=== PATIENT | male | born 1965 | race Caucasian/White ===

== ENCOUNTER 2016-11-09 23:33 | Emergency (ER) | payer OTHER ==
[2016-11-09 23:58] VITALS: BP 160/101
[2016-11-10] MEDS ORDERED: PROVENTIL IH ONE (01:34)
--- NOTE | 2016-11-10 02:29 | Emergency Department Report ---
ED Asthma HPI - General Chief Complaint: Adult Asthma Stated Complaint: BOLA Time Seen by Provider: 11/10/16 01:34 Source: patient Mode of arrival: Ambulatory Limitations: No Limitations - History of Present Illness Initial Comments: 51-year-old male comes in for asthma exacerbation. Patient reports that he has been wheezing. Not coughing much. Denies any fever no chills. He does report he was using a an inhaler but it has and has run out. - Related Data Previous Rx's Medication Instructions Recorded Last Taken Type ALBUTEROL Inhaler [ProAir HFA 2 puff IH QID PRN #1 inhalation 11/10/16 Unknown Rx Inhaler] Allergies Allergy/AdvReac Type Severity Reaction Status Date / Time No Known Allergies Allergy Verified 04/11/15 10:14 ED Review of Systems ROS: Stated complaint: BOLA Other details as noted in HPI Constitutional: denies: chills, fever, malaise ENT: denies: ear pain, throat pain Respiratory: wheezing. denies: cough Gastrointestinal: denies: abdominal pain, nausea, vomiting ED Past Medical Hx - Past Medical History Previous Medical History?: Yes Additional medical history: Hypothyroidism - Surgical History Past Surgical History?: Yes Additional Surgical History: THYROIDECTOMY - Social History Smoking Status: Never Smoker Substance Use Type: None - Medications Home Medications: Home Medications Medication Instructions Recorded Confirmed Last Taken Type ALBUTEROL Inhaler [ProAir HFA 2 puff IH QID PRN #1 inhalation 11/10/16 Unknown Rx Inhaler] ED Physical Exam - General Limitations: No Limitations General appearance: alert, in no apparent distress - Head Head exam: Present: atraumatic, normocephalic - Eye Eye exam: Present: normal appearance - ENT ENT exam: Present: normal exam, mucous membranes moist, TM's normal bilaterally - Neck Neck exam: Present: normal inspection. Absent: tenderness, full ROM, lymphadenopathy - Respiratory Respiratory exam: Present: wheezes (inspiratory wheeze) - Cardiovascular Cardiovascular Exam: Present: regular rate, normal rhythm, normal heart sounds ED Course Vital Signs 11/09/16 23:54 Temperature 98.1 F Pulse Rate 66 Respiratory 22 Rate Blood Pressure 160/101 O2 Sat by Pulse 97 Oximetry - Reevaluation(s) Reevaluation #1: 11/10/16 02:36 Patient post nebulizer treatment. Patient lungs are clear bilateral. Patient reports he feels much better. ED Medical Decision Making - Medical Decision Making Patient has been evaluated this provider in fast track. Ordered a nebulizer treatment of albuterol. We will discharge patient on albuterol inhaler. To follow-up with his primary care provider. Last understanding. Critical care attestation.: If time is entered above; I have spent that time in minutes in the direct care of this critically ill patient, excluding procedure time. ED Disposition Clinical Impression: Wheezing, Asthma Disposition: DISCHARGED TO HOME OR SELFCARE Is pt being admited?: No Does the pt Need Aspirin: No Condition: Stable Instructions: Reactive Airways Disease (ED), Asthma (ED) Additional Instructions: Use inhaler as prescribed. Follow up to primary care provider in 3-5 days. Prescriptions: ALBUTEROL Inhaler [ProAir HFA Inhaler] 2 puff IH QID PRN #1 inhalation PRN Reason: Shortness Of Breath Referrals: PRIMARY CARE, [Primary Care Provider] - 3-5 Days [facility] [Provider Group] - 3-5 Days Forms: Accompanied Note, Work/School Release Form(ED)
== END 2016-11-10 02:41 | disposition home or self-care (01) ==
LOC: ED 23:33
DX: J45.901 Unspecified asthma with (acute) exacerbation (principal); E89.0 Postprocedural hypothyroidism
CPT/HCPCS: 94640

== ENCOUNTER 2022-03-31 08:49 | Emergency (ER) | payer OTHER ==
[2022-03-31 08:59] VITALS: BP 127/79
--- NOTE | 2022-03-31 09:29 | XRay Report ---
XR chest routine 2V INDICATION / CLINICAL INFORMATION: SOB COMPARISON: None available. FINDINGS: SUPPORT DEVICES: None. HEART / MEDIASTINUM: No significant abnormality. LUNGS / PLEURA: Lungs are clear. Costophrenic sulci are sharp. No pneumothorax. ADDITIONAL FINDINGS: No significant additional findings. IMPRESSION: 1. No acute findings. Signer Name: Tom Celeste MD Signed: 03/31/2022 9:25 AM Workstation Name: [id number]
[2022-03-31] MEDS ORDERED: IPRATROPIUM 0.02% NEBU 2.5 ML IH ONE (11:13)
[2022-03-31] MEDS ORDERED: methylPREDNISolone Sod Succinate 125 MG/2 ML INJ IM ONE (11:13)
[2022-03-31] MEDS ORDERED: ALBUTEROL 2.5 MG/3 ML NEBU IH ONE (11:13)
[2022-03-31 11:47] LABS: Basophils # (Auto) 0.1 K/mm3 (0.0-0.1); Basophils % (Auto) 1.2 % (0.0-1.8); Eosinophils # (Auto) 0.4 K/mm3 (0.0-0.4); Eosinophils % (Auto) 5.5 % (0.0-4.3); Hematocrit 43.7 % (35.5-45.6); Hemoglobin 14.6 gm/dl (11.8-15.2); Lymphocytes # (Auto) 1.5 K/mm3 (1.2-5.4); Lymphocytes % (Auto) 21.3 % (13.4-35.0); Mean Corpuscular HGB Conc 34 % (32-34); Mean Corpuscular Volume 86 fl (84-94); Monocytes # (Auto) 0.7 K/mm3 (0.0-0.8); Monocytes % (Auto) 9.6 % (0.0-7.3); Platelet Count 253 K/mm3 (140-440); Red Cell Distribution Width 13.7 % (13.2-15.2)
[2022-03-31 13:02] LABS: Alanine Aminotransferase 16 units/L (7-56); Albumin 4.8 g/dL (3.9-5); Blood Urea Nitrogen 15 mg/dL (9-20); Calcium 9.2 mg/dL (8.4-10.2); Hemolysis Index 5
[2022-03-31 13:07] LABS: BUN/Creatinine Ratio 25
--- NOTE | 2022-03-31 13:36 | Electrocardiograph Report ---
[facility] Test Date: 2022-03-31 Test Time: 11:19:12 Pat Name: AUGUSTINA KISER Department: Room: Gender: M [employer]am[employer] Teacher: FOREST : 1965 Requested By: CRYSTAL BOO Order Number: [id number] Reading MD: Marylin Moon Measurements Intervals Purchase Rate: 65 P: 58 FL: 162 QRS: 86 QRSD: 96 T: 75 QT: 397 QTc: 412 Interpretive Statements Sinus rhythm ST elev, probable normal early repol pattern No previous ECG available for comparison Electronically Signed On 03-31-2022 13:35:52 EDT by Marylin Moon
--- NOTE | 2022-03-31 15:03 | Emergency Department Report ---
ED Shortness of Breath HPI - General Chief Complaint: Dyspnea/Respdistress Stated Complaint: ASTHMA Source: patient Mode of arrival: Ambulatory Limitations: No Limitations - History of Present Illness Initial Comments: Patient is a 56-year-old Lao male with a history of asthma and hypothyroidism who presents to the ED with complaint of acute onset persistent shortness of breath, persistent dry cough and wheezing for the last 1 week. Patient states that he has had persistent shortness of breath anytime he walks outside the house and exposed to environmental allergens. Patient states that he uses albuterol inhaler and nebulizers at home with minimal relief. Patient denies dizziness, syncope, chest pain, fever, chills, sore throat, nasal and sinus congestion, headache, abdominal pain, nausea and vomiting or neck pain and change in vision. MD Complaint: shortness of breath, "asthma attack" -: Gradual, week(s) (1) Severity: moderate Quality: dull, other Consistency: intermittent (Chest tightness) Improves With: nothing Worsens With: lying flat, exertion Known History Of: asthma Context: recent URI, allergen exposure Associated Symptoms: denies other symptoms, cough Treatments Prior to Arrival: none - Related Data Home Oxygen Therapy: No Previous Rx's Medication Instructions Recorded Last Taken Type ALBUTEROL NEB's [Proventil 0.083% 3 ml IH Q6H PRN #90 ml 03/31/22 Unknown Rx NEBS] Albuterol Mdi (or & Nicu Only) 2 puff IH QID PRN #1 inhalation 03/31/22 Unknown Rx [ProAir HFA Inhaler] Benzonatate [Tessalon Perles] 100 mg PO Q8HR #30 cap 03/31/22 Unknown Rx Cetirizine HCl [Zyrtec 10mg tab] 10 mg PO DAILY #30 tab 03/31/22 Unknown Rx Montelukast [Singulair] 10 mg PO QPM #30 tablet 03/31/22 Unknown Rx methylPREDNISolone [Medrol 4MG 4 mg PO DAILY #21 tab 03/31/22 Unknown Rx DOSEPAK (21 tabs)] Allergies Allergy/AdvReac Type Severity Reaction Status Date / Time No Known Allergies Allergy Verified 04/11/15 10:14 ED Review of Systems ROS: Stated complaint: ASTHMA Other details as noted in HPI Constitutional: denies: chills, fever Eyes: denies: eye pain, eye discharge, vision change ENT: denies: ear pain, throat pain Respiratory: cough, shortness of breath, wheezing Cardiovascular: chest pain (Chest tightness). denies: palpitations Endocrine: no symptoms reported Gastrointestinal: denies: abdominal pain, nausea, vomiting, diarrhea Genitourinary: denies: urgency, dysuria Musculoskeletal: denies: back pain, joint swelling, arthralgia Skin: denies: rash, lesions Neurological: denies: headache, weakness, paresthesias Psychiatric: anxiety. denies: depression Hematological/Lymphatic: denies: easy bleeding, easy bruising ED Past Medical Hx - Past Medical History Previous Medical History?: Yes Hx Asthma: Yes Additional medical history: Hypothyroidism - Surgical History Additional Surgical History: THYROIDECTOMY - Social History Smoking Status: Never Smoker Substance Use Type: None - Medications Home Medications: Home Medications Medication Instructions Recorded Confirmed Last Taken Type ALBUTEROL NEB's [Proventil 0.083% 3 ml IH Q6H PRN #90 ml 03/31/22 Unknown Rx NEBS] Albuterol Mdi (or & Nicu Only) 2 puff IH QID PRN #1 inhalation 03/31/22 Unknown Rx [ProAir HFA Inhaler] Benzonatate [Tessalon Perles] 100 mg PO Q8HR #30 cap 03/31/22 Unknown Rx Cetirizine HCl [Zyrtec 10mg tab] 10 mg PO DAILY #30 tab 03/31/22 Unknown Rx Montelukast [Singulair] 10 mg PO QPM #30 tablet 03/31/22 Unknown Rx methylPREDNISolone [Medrol 4MG 4 mg PO DAILY #21 tab 03/31/22 Unknown Rx DOSEPAK (21 tabs)] ED Physical Exam - General Limitations: No Limitations General appearance: alert, in no apparent distress - Head Head exam: Present: atraumatic, normocephalic, normal inspection - Eye Eye exam: Present: normal appearance, PERRL, EOMI Pupils: Present: normal accommodation - ENT ENT exam: Present: normal exam, normal orophraynx, mucous membranes moist, TM's normal bilaterally, normal external ear exam - Neck Neck exam: Present: normal inspection, full ROM. Absent: tenderness - Respiratory Respiratory exam: Present: wheezes (Mildly diffuse coarse wheezes throughout). Absent: normal lung sounds bilaterally, respiratory distress, rales, stridor, chest wall tenderness, accessory muscle use, decreased breath sounds, prolonged expiratory - Cardiovascular Cardiovascular Exam: Present: regular rate, normal rhythm, normal heart sounds. Absent: systolic murmur, diastolic murmur, rubs, gallop - GI/Abdominal GI/Abdominal exam: Present: soft, normal bowel sounds. Absent: distended, guarding, rebound, hyperactive bowel sounds, hypoactive bowel sounds, organomegaly - Extremities Exam Extremities exam: Present: normal inspection, full ROM, normal capillary refill. Absent: tenderness - Back Exam Back exam: Present: normal inspection, full ROM. Absent: tenderness, CVA tenderness (R), CVA tenderness (L), muscle spasm, paraspinal tenderness, vertebral tenderness - Neurological Exam Neurological exam: Present: alert, oriented X3, CN II-XII intact, normal gait, reflexes normal - Psychiatric Psychiatric exam: Present: normal affect, normal mood, anxious - Skin Skin exam: Present: warm, dry, intact, normal color. Absent: rash ED Course Vital Signs 03/31/22 03/31/22 08:58 11:37 Temperature 98.2 F Pulse Rate 88 Pulse Rate [ 79 Anterior Bilateral Throughout] Respiratory 22 Rate Respiratory 20 Rate [Anterior Bilateral Throughout] Blood Pressure 127/79 O2 Sat by Pulse 97 Oximetry ED Medical Decision Making - Lab Data Result diagrams: 03/31/22 11:20 03/31/22 11:20 - EKG Data EKG shows normal: sinus rhythm Rate: normal - EKG Data Interpretation: normal EKG 03/31/22 15:17 EKG shows normal sinus rhythm with a ventricular rate of [address] elevation due to early repolarization pattern. - Radiology Data Radiology results: report reviewed, image reviewed [facility] [address] [place] [address] XRay Report Signed Patient: AUGUSTINA KISER MR#: [id number] : 1965 Acct:[id number] Age/Sex: 56 / M ADM Date: 03/31/22 Loc: ED Attending Dr: Ordering Physician: ROMAN GUEVARA MD Date of Service: 03/31/22 Procedure(s): XR chest routine 2V Accession Number(s): [id number] cc: ED MD ISMAEL Fluoro Time In Minutes: XR chest routine 2V INDICATION / CLINICAL INFORMATION: SOB COMPARISON: None available. FINDINGS: SUPPORT DEVICES: None. HEART / MEDIASTINUM: No significant abnormality. LUNGS / PLEURA: Lungs are clear. Costophrenic sulci are sharp. No pneu mothorax. ADDITIONAL FINDINGS: No significant additional findings. IMPRESSION: 1. No acute findings. Signer Name: Tom Celeste MD Signed: 03/31/2022 9:25 AM Workstation Name: [id number] Transcribed By: CS Dictated By: Tom Celeste MD Electronically Authenticated By: Tom Celeste MD Signed Date/Time: 03/31/22924 DD/ 4 TD/TT: Print - Medical Decision Making This is a 56-year-old Lao male with a history of asthma and hypothyroidism who presents to the ED with complaint of acute onset persistent shortness of breath, persistent dry cough and wheezing for the last 1 week. Patient states that he has had persistent shortness of breath anytime he walks outside the house and exposed to environmental allergens. Patient states that he uses albuterol inhaler and nebulizers at home with minimal relief. In the ED, patient is alert and oriented x3 and is not in any distress. Patient was treated in the ED with DuoNeb and Solu-Medrol. Chest x-ray showed no acute cardiopulmonary abnormalities or pneumonitis. EKG shows normal sinus rhythm with a ventricular rate of [address] elevation which is probably due to early repolarization pattern. Lab test results were reviewed and are all nonact ionable. On reevaluation, patient felt better, wheezing resolved patient was discharged home on medications including refill on his medications and advised to follow-up with his primary care physician in 5 to 7 days for reevaluation or return to the ED immediately if symptoms get worse. - Differential Diagnosis Asthma; bronchitis; pneumonia; CHF; ACS; URI; rhinitis Critical care attestation.: If time is entered above; I have spent that time in minutes in the direct care of this critically ill patient, excluding procedure time. ED Disposition Clinical Impression: Shortness of breath, Acute bronchitis with asthma with acute exacerbation Disposition: HOME / SELF CARE / HOMELESS Is pt being admited?: No Does the pt Need Aspirin: No Condition: Stable Instructions: Shortness of Breath, Adult, [id number], Cough, Adult, Zzyv-lv-[id number], Acute Bronchitis, Adult, Cigx-aw-Ngrm, Asthma, Adult, Mufm-pz-Inhp Additional Instructions: All lab test results were reviewed and are all nonactionable. EKG shows normal sinus rhythm with a ventricular rate of 65 bpm and early repolarization pattern. Chest x-ray showed no acute cardiopulmonary abnormalities or pneumonitis. Therefore take your medications and follow-up with your primary care physician in 7 to 10 days for reevaluation. Return to the ED immediately if symptoms get worse. Prescriptions: methylPREDNISolone [Medrol 4MG DOSEPAK (21 tabs)] 4 mg PO DAILY #21 tab Albuterol Mdi (or & Nicu Only) [ProAir HFA Inhaler] 2 puff IH QID PRN #1 inhalation PRN Reason: Shortness Of Breath ALBUTEROL NEB's [Proventil 0.083% NEBS] 3 ml IH Q6H PRN #90 ml PRN Reason: Wheezing Montelukast [Singulair] 10 mg PO QPM #30 tablet Benzonatate [Tessalon Perles] 100 mg PO Q8HR #30 cap Cetirizine HCl [Zyrtec 10mg tab] 10 mg PO DAILY #30 tab Referrals: AIDA ROCK MD [Staff Physician] - 3-5 Days Time of Disposition: 15:06 Print Language: YAKUT
== END 2022-03-31 15:31 | disposition home or self-care (01) ==
LOC: ED 08:49
DX: J45.901 Unspecified asthma with (acute) exacerbation (principal); R06.02 Shortness of breath; E03.9 Hypothyroidism, unspecified; Z98.890 Other specified postprocedural states
CPT/HCPCS: 36415; 71046; 80053; 83880; 84484; 85025; 93005; 94644; 96372; 99283; J2930

== ENCOUNTER 2022-04-10 09:23 | Emergency (ER) | payer SELFPAY ==
[2022-04-10 09:36] VITALS: BP 104/74
--- NOTE | 2022-04-10 10:08 | XRay Report ---
CHEST 2 VIEWS INDICATION / CLINICAL INFORMATION: cough. COMPARISON: 03/31/2022 FINDINGS: SUPPORT DEVICES: None. HEART / MEDIASTINUM: No significant abnormality. LUNGS / PLEURA: No significant pulmonary or pleural abnormality. No pneumothorax. ADDITIONAL FINDINGS: No significant additional findings. IMPRESSION: 1. No acute findings. Signer Name: Simone Daley MD Signed: 04/10/2022 10:03 AM Workstation Name: [id number]
[2022-04-10] MEDS ORDERED: methylPREDNISolone Sod Succinate 125 MG/2 ML INJ IM ONE (11:16)
--- NOTE | 2022-04-10 11:48 | Emergency Department Report ---
- General Chief Complaint: Upper Respiratory Infection Stated Complaint: COUGH PUI?: No Source: patient Mode of arrival: Ambulatory Limitations: No Limitations - History of Present Illness Initial Comments: Patient is a 56-year-old Russian male with a history of asthma presents to the ED with complaint of acute onset persistent nasal and sinus congestion, persistent dry cough with intermittent wheezes and shortness of breath for the last 1 week. Patient states that he has been using his albuterol inhaler at home with minimal relief. Patient states that the last time he used his inhaler was 2 hours prior to arrival in the ED. Patient denies dizziness, syncope, chest pain, shortness of breath, nausea and vomiting, abdominal pain, sore throat, lack of appetite, change in vision, dysphagia or dysphonia, itching or hives. MD Complaint: cough, rhinorrhea, nasal congestion -: Sudden, week(s) (1) Severity: moderate Severity scale (0 -10): 4 Quality: dull, aching Consistency: constant Improves With: nothing Worsens With: nothing Associated Symptoms: denies other symptoms, rhinorrhea, nasal congestion, cough, shortness of breath. denies: fever, chills, myalgias, diaphoresis, headache, stiff neck, chest pain, abdominal pain, nausea, vomiting, diarrhea, rash, right sweats, epistaxis, ear pain, other Treatments Prior to Arrival: "cold medicine" - Related Data Previous Rx's Medication Instructions Recorded Last Taken Type ALBUTEROL NEB's [Proventil 0.083% 3 ml IH Q6H PRN #90 ml 03/31/22 Unknown Rx NEBS] Albuterol Mdi (or & Nicu Only) 2 puff IH QID PRN #1 inhalation 04/10/22 Unknown Rx [ProAir HFA Inhaler] Benzonatate [Tessalon Perles] 100 mg PO Q8HR #30 cap 04/10/22 Unknown Rx Cetirizine HCl [Zyrtec 10mg tab] 10 mg PO DAILY #30 tab 04/10/22 Unknown Rx Montelukast [Singulair] 10 mg PO QPM #30 tablet 04/10/22 Unknown Rx methylPREDNISolone [Medrol 4MG 4 mg PO DAILY #21 tab 04/10/22 Unknown Rx DOSEPAK (21 tabs)] Allergies Allergy/AdvReac Type Severity Reaction Status Date / Time No Known Allergies Allergy Verified 04/11/15 10:14 ED Review of Systems ROS: Stated complaint: COUGH Other details as noted in HPI Constitutional: denies: chills, fever Eyes: denies: eye pain, eye discharge, vision change ENT: congestion. denies: ear pain, throat pain Respiratory: cough. denies: shortness of breath, wheezing Cardiovascular: denies: chest pain, palpitations Endocrine: no symptoms reported Gastrointestinal: denies: abdominal pain, nausea, diarrhea Genitourinary: denies: urgency, dysuria Musculoskeletal: denies: back pain, joint swelling, arthralgia Skin: denies: rash, lesions Neurological: denies: headache, weakness, paresthesias Psychiatric: denies: anxiety, depression Hematological/Lymphatic: denies: easy bleeding, easy bruising ED Past Medical Hx - Past Medical History Hx Asthma: Yes Additional medical history: Hypothyroidism - Surgical History Additional Surgical History: THYROIDECTOMY - Social History Smoking Status: Never Smoker - Medications Home Medications: Home Medications Medication Instructions Recorded Confirmed Last Taken Type ALBUTEROL NEB's [Proventil 0.083% 3 ml IH Q6H PRN #90 ml 03/31/22 Unknown Rx NEBS] Albuterol Mdi (or & Nicu Only) 2 puff IH QID PRN #1 inhalation 04/10/22 Unknown Rx [ProAir HFA Inhaler] Benzonatate [Tessalon Perles] 100 mg PO Q8HR #30 cap 04/10/22 Unknown Rx Cetirizine HCl [Zyrtec 10mg tab] 10 mg PO DAILY #30 tab 04/10/22 Unknown Rx Montelukast [Singulair] 10 mg PO QPM #30 tablet 04/10/22 Unknown Rx methylPREDNISolone [Medrol 4MG 4 mg PO DAILY #21 tab 04/10/22 Unknown Rx DOSEPAK (21 tabs)] ED Physical Exam - General Limitations: No Limitations General appearance: alert, in no apparent distress - Head Head exam: Present: atraumatic, normocephalic, normal inspection - Eye Eye exam: Present: normal appearance, PERRL, EOMI Pupils: Present: normal accommodation - ENT ENT exam: Present: normal orophraynx, mucous membranes moist, TM's normal bilaterally, normal external ear exam - Neck Neck exam: Present: normal inspection, full ROM. Absent: tenderness - Respiratory Respiratory exam: Present: normal lung sounds bilaterally. Absent: respiratory distress, wheezes, rales, rhonchi, stridor, chest wall tenderness, accessory muscle use, decreased breath sounds, prolonged expiratory, other - Cardiovascular Cardiovascular Exam: Present: regular rate, normal rhythm, normal heart sounds. Absent: systolic murmur, diastolic murmur, rubs, gallop - GI/Abdominal GI/Abdominal exam: Present: soft, normal bowel sounds. Absent: tenderness, guarding, rebound, hyperactive bowel sounds, hypoactive bowel sounds - Rectal Rectal exam: Present: deferred - Extremities Exam Extremities exam: Present: normal inspection - Back Exam Back exam: Present: normal inspection - Neurological Exam Neurological exam: Present: alert, oriented X3 - Psychiatric Psychiatric exam: Present: normal affect, normal mood - Skin Skin exam: Present: warm, dry, intact, normal color. Absent: rash ED Course Vital Signs 04/10/22 09:32 Temperature 97.8 F Pulse Rate 89 Respiratory 20 Rate Blood Pressure 104/74 O2 Sat by Pulse 95 Oximetry ED Medical Decision Making - Radiology Data Radiology results: report reviewed, image reviewed [address] [address] XRay Report Signed Patient: AUGUSTINA KISER MR#: [id number] : 1965 Acct:[id number] Age/Sex: 56 / M ADM Date: 04/10/22 Loc: ED Attending Dr: Ordering Physician: ROMAN GUEVARA MD Date of Service: 04/10/22 Procedure(s): XR chest routine 2V Accession Number(s): [id number] cc: ED MD ISMAEL Fluoro Time In Minutes: CHEST 2 VIEWS INDICATION / CLINICAL INFORMATION: cough. COMPARISON: 03/31/2022 FINDINGS: SUPPORT DEVICES: None. HEART / MEDIASTINUM: No significant abnormality. LUNGS / PLEURA: No significant pulmonary or pleural abnormality. No pneumothorax. ADDITIONAL FINDINGS: No significant additional findings. IMPRESSION: 1. No acute findings. Signer Name: Simone Daley MD Signed: 04/10/2022 10:03 AM Workstation Name: [id number] Transcribed By: EDWARD Dictated By: Simone Daley MD Electronically Authenticated By: Simone aDley MD Signed Date/Time: 04/10/22 100 DD/ 1003 TD/TT: - Medical Decision Making This is a 56-year-old Russian male with a history of asthma presents to the ED with complaint of acute onset persistent nasal and sinus congestion, persistent dry cough with intermittent wheezes and shortness of breath for the last 1 week. Patient states that he has been using his albuterol inhaler at home with minimal relief. Patient states that the last time he used his inhaler was 2 hours prior to arrival in the ED. in the ED, patient is alert and oriented x3 and is not in any distress. Patient is hemodynamically stable. Chest x-ray showed no acute cardiopulmonary abnormalities or pneumonitis. Patient also received Solu-Medrol 125 mg intramuscular injection. Patient was discharged home on medications and advised to follow-up with his primary care physician in 5 to 7 days for reevaluation or return to the ED immediately if symptoms get worse. - Differential Diagnosis Asthma; bronchitis; URI; sinusitis; pneumonia Critical care attestation.: If time is entered above; I have spent that time in minutes in the direct care of this critically ill patient, excluding procedure time. ED Disposition Clinical Impression: Acute bronchitis with asthma with acute exacerbation, Acute upper respiratory infection Disposition: HOME / SELF CARE / HOMELESS Is pt being admited?: No Does the pt Need Aspirin: No Condition: Stable Instructions: Upper Respiratory Infection, Adult, Tsuk-gb-Eypq, Cough, Adult, Xrzm-xn-Huog, Acute Bronchitis, Adult, Bcwr-ax-Egvc, Asthma, Adult, Cdbw-pc-Yfkn Additional Instructions: Chest x-ray showed no acute cardiopulmonary abnormalities or pneumonitis. Therefore take medication with food, drink plenty of fluids, follow-up with your primary care physician in 7 to 10 days for reevaluation. Return to the ED immediately if symptoms get worse. Prescriptions: methylPREDNISolone [Medrol 4MG DOSEPAK (21 tabs)] 4 mg PO DAILY #21 tab Albuterol Mdi (or & Nicu Only) [ProAir HFA Inhaler] 2 puff IH QID PRN #1 inhalation PRN Reason: Shortness Of Breath Montelukast [Singulair] 10 mg PO QPM #30 tablet Benzonatate [Tessalon Perles] 100 mg PO Q8HR #30 cap Cetirizine HCl [Zyrtec 10mg tab] 10 mg PO DAILY #30 tab Referrals: CARBUCCIA,AIDA, MD [Staff Physician] - 3-5 Days Time of Disposition: 12:18 Print Language: IRISH
== END 2022-04-10 13:30 | disposition home or self-care (01) ==
LOC: ED 09:23
DX: J20.9 Acute bronchitis, unspecified (principal); J45.901 Unspecified asthma with (acute) exacerbation; J06.9 Acute upper respiratory infection, unspecified; E03.9 Hypothyroidism, unspecified; Z98.890 Other specified postprocedural states
CPT/HCPCS: 71046; 96372; 99283; J2930

== ENCOUNTER 2022-04-13 12:02 | Emergency (ER) | payer SELFPAY ==
--- NOTE | 2022-04-13 16:07 | XRay Report ---
CHEST 2 VIEWS INDICATION / CLINICAL INFORMATION: cough. COMPARISON: 04/10/2022 FINDINGS: SUPPORT DEVICES: None. HEART / MEDIASTINUM: No significant abnormality. LUNGS / PLEURA: No significant pulmonary or pleural abnormality. No pneumothorax. ADDITIONAL FINDINGS: No significant additional findings. IMPRESSION: 1. No acute findings. Signer Name: Dilip Pollack MD Signed: 04/13/2022 4:03 PM Workstation Name: [id number]
[2022-04-13 16:30] VITALS: BP 150/81
[2022-04-13] MEDS ORDERED: BENZONATATE 100 MG CAP PO ONE (17:03)
--- NOTE | 2022-04-13 17:04 | Emergency Department Report ---
Upper Respiratory HPI - HPI Chief Complaint: Upper Respiratory Infection Stated Complaint: COUGHING Time Seen by Provider: 04/13/22 16:19 Duration: 3 weeks URI Symptoms: Rhinorrhea: Yes, Cough: Yes Other History: This is a 56-year-old male nontoxic, well nourished in appearance, no acute signs of distress presents to the ED with c/o of nonproductive dry cough x 3 weeks. Patient denies any other symptoms or complaints. Patient denies any recent travels, long car, recent hospital stays. Patient denies any calf pain or calf tenderness. Patient denies any chest pain, short of breath, fever, chills, nausea, vomiting, hemoptysis, numbness, tingling, headache or stiff neck. Denies any allergies. - Home Meds and Allergies Home Medications: Previous Rx's Medication Instructions Recorded Last Taken Type ALBUTEROL NEB's [Proventil 0.083% 3 ml IH Q6H PRN #90 ml 03/31/22 Unknown Rx NEBS] Albuterol Mdi (or & Nicu Only) 2 puff IH QID PRN #1 inhalation 04/10/22 Unknown Rx [ProAir HFA Inhaler] Benzonatate [Tessalon Perles] 100 mg PO Q8HR #30 cap 04/10/22 Unknown Rx Cetirizine HCl [Zyrtec 10mg tab] 10 mg PO DAILY #30 tab 04/10/22 Unknown Rx Montelukast [Singulair] 10 mg PO QPM #30 tablet 04/10/22 Unknown Rx methylPREDNISolone [Medrol 4MG 4 mg PO DAILY #21 tab 04/10/22 Unknown Rx DOSEPAK (21 tabs)] Benzonatate [Tessalon Perles] 100 mg PO Q12H PRN #12 cap 04/13/22 Unknown Rx Loratadine [Claritin] 10 mg PO DAILY #15 tab 04/13/22 Unknown Rx Allergies/Adverse Reactions: Allergies Allergy/AdvReac Type Severity Reaction Status Date / Time No Known Allergies Allergy Verified 04/13/22 16:30 ED Review of Systems ROS: Stated complaint: COUGHING Other details as noted in HPI Comment: All other systems reviewed and negative Constitutional: denies: chills, fever Eyes: denies: eye pain, eye discharge, vision change ENT: denies: ear pain, throat pain Respiratory: cough. denies: orthopnea, shortness of breath, SOB with exertion, SOB at rest, stridor, wheezing Cardiovascular: denies: chest pain, palpitations Endocrine: no symptoms reported Gastrointestinal: denies: abdominal pain, nausea, diarrhea Genitourinary: denies: urgency, dysuria Musculoskeletal: denies: back pain, joint swelling, arthralgia Skin: denies: rash, lesions Neurological: denies: headache, weakness, paresthesias Psychiatric: denies: anxiety, depression Hematological/Lymphatic: denies: easy bleeding, easy bruising ED Past Medical Hx - Past Medical History Hx Asthma: Yes Additional medical history: Hypothyroidism - Surgical History Additional Surgical History: THYROIDECTOMY - Social History Smoking Status: Never Smoker - Medications Home Medications: Home Medications Medication Instructions Recorded Confirmed Last Taken Type ALBUTEROL NEB's [Proventil 0.083% 3 ml IH Q6H PRN #90 ml 03/31/22 Unknown Rx NEBS] Albuterol Mdi (or & Nicu Only) 2 puff IH QID PRN #1 inhalation 04/10/22 Unknown Rx [ProAir HFA Inhaler] Benzonatate [Tessalon Perles] 100 mg PO Q8HR #30 cap 04/10/22 Unknown Rx Cetirizine HCl [Zyrtec 10mg tab] 10 mg PO DAILY #30 tab 04/10/22 Unknown Rx Montelukast [Singulair] 10 mg PO QPM #30 tablet 04/10/22 Unknown Rx methylPREDNISolone [Medrol 4MG 4 mg PO DAILY #21 tab 04/10/22 Unknown Rx DOSEPAK (21 tabs)] Benzonatate [Tessalon Perles] 100 mg PO Q12H PRN #12 cap 04/13/22 Unknown Rx Loratadine [Claritin] 10 mg PO DAILY #15 tab 04/13/22 Unknown Rx ED Bronchiolitis Physical Exam - Exam General: Vital signs noted. No distress. Alert and acting appropriately. HEENT: No Pharyngeal Erythema, No Conjuctival Injection, No Dry Mucous M embranes, No Rhinorrhea Ear: Neither TM Bulge, Neither TM Erythema, Neither EAC Discharge Neck: No Adenopathy, No Rigidity Lungs: Yes Clear Lung Sounds, Yes Good Air Exchange, No Wheezes, No Stridor, No Cough, No Nasal Flaring, No Retractions, No Use of Accessory Muscles Heart: Yes Regular, No Murmur Abdomen: Yes Normal Bowel Sounds, No Tenderness, No Peritoneal Signs Skin: No Rash, No Eczema Neurologic: Alert and oriented, no deficits. Musculoskeletal: Unremarkable. ED Bronchiolitis Tests - Testing Testing: CXR: Normal/Negative ED Physical Exam - General Limitations: No Limitations ED Course Vital Signs 04/13/22 04/13/22 15:40 16:29 Temperature 97.8 F 98.4 F Pulse Rate 87 75 Respiratory 16 18 Rate Blood Pressure 161/91 150/81 [Right] O2 Sat by Pulse 95 97 Oximetry - Reevaluation(s) Reevaluation #1: 04/13/22 17:02 Patient is speaking in full sentences with no signs of distress noted. ED Medical Decision Making - Radiology Data [facility] [address] [place] [address] XRay Report Signed Patient: AUGUSTINA KISER#: [id number] : 1965 Acct:[id number] Age/Sex: 56 / M ADM Date: 04/13/22 Loc: ED Attending Dr: Ordering Physician: ROMAN GUEVARA MD Date of Service: 04/13/22 Procedure(s): XR chest routine 2V Accession Number(s): [id number] cc: ED MD ISMAEL Fluoro Time In Minutes: CHEST 2 VIEWS INDICATION / CLINICAL INFORMATION: cough. COMPARISON: 04/10/2022 FINDINGS: SUPPORT DEVICES: None. HEART / MEDIASTINUM: No significant abnormality. LUNGS / PLEURA: No significant pulmonary or pleural abnormality. No pneumothorax. ADDITIONAL FINDINGS: No significant additional findings. IMPRESSION: 1. No acute findings. Signer Name: Dilip Pollack MD Signed: 04/13/2022 4:03 PM Workstation Name: [id number] Transcribed By: CW Dictated By: CHRYSTAL POLLACK MD Electronically Authenticated By: CHRYSTAL POLLACK MD Signed Date/Time: 04/13/221602 DD/ 01 TD/TT: - Medical Decision Making This is a 56-year-old male that presents with dry cough. Patient is stable and was examined by me. Chest x-ray has been obtained and dictated by radiologist with normal exam. Patient is notified of x-ray results with no questions noted. Patient does not meet clinical concerns of COVID-19 but patient was instructed and educated on signs and symptoms and to self quarantine and seek medical attention as soon as possible if symptoms does occur. Vitals stable. Patient is nonfebrile and normal heart rate. Patient was instructed Follow-up with a primary care doctor in 3-5 days or if symptoms worsen and continue return to emergency room as soon as possible. At time time of discharge, the patient does not seem toxic or ill in appearance. No acute signs of distress noted. Patient agrees to discharge treatment plan of care. No further questions noted by the patient.nt. Critical care attestation.: If time is entered above; I have spent that time in minutes in the direct care of this critically ill patient, excluding procedure time. ED Disposition Clinical Impression: Dry cough Disposition: 01 HOME / SELF CARE / HOMELESS Is pt being admited?: No Does the pt Need Aspirin: No Condition: Stable Additional Instructions: Follow-up with a primary care doctor in 3-5 days or if symptoms worsen and continue return to emergency room as soon as possible. Prescriptions: Loratadine [Claritin] 10 mg PO DAILY #15 tab Benzonatate [Tessalon Perles] 100 mg PO Q12H PRN #12 cap PRN Reason: Cough Referrals: PRIMARY CAREMD [Referring] - 3-5 Days AIDA ROCK MD [Staff Physician] - 3-5 Days Time of Disposition: 17:04
== END 2022-04-13 17:52 | disposition home or self-care (01) ==
LOC: ED 12:02
DX: R05.9 Cough, unspecified (principal); J45.909 Unspecified asthma, uncomplicated; Z79.899 Other long term (current) drug therapy
CPT/HCPCS: 71046; 99283